=== PATIENT | female | born 2000 ===

== ENCOUNTER 2022-03-27 03:32 | Emergency (ER) | payer SELFPAY ==
[2022-03-27] MEDS ORDERED: Famotidine 20 MG/2 ML SDV IVPUSH ONE (04:10)
[2022-03-27] MEDS ORDERED: Metoclopramide 10 MG/2 ML SDV IVPUSH ONE (04:10)
[2022-03-27 04:34] LABS: AMPHETAMINES,URINE NEGATIVE (NEGATIVE); BARBITURATES,URINE NEGATIVE (NEGATIVE); BENZODIAZEPINE,URINE NEGATIVE (NEGATIVE); MDMA (ECSTASY), URINE NEGATIVE (NEGATIVE); METHADONE,URINE NEGATIVE (NEGATIVE); METHAMPHETAMINES,URINE NEGATIVE (NEGATIVE); OPIATES,URINE NEGATIVE (NEGATIVE); OXYCODONE,URINE NEGATIVE (NEGATIVE); PHENCYCLIDINE,URINE NEGATIVE (NEGATIVE); TCA,URINE NEGATIVE (NEGATIVE)
[2022-03-27 04:50] LABS: ANION GAP 14.4 mEq/L (7-13); CHLORIDE,CL 103 mmol/L (98-107); ESTIMATED GFR 108 mL/min (>=60); SODIUM,NA 142 mmol/L (136-145)
[2022-03-27] MEDS ORDERED: Iopamidol 612 MG/ML 100 ML Bottle IVPUSH ONE (05:12)
[2022-03-27] MEDS ORDERED: HYDROmorphone 0.5 MG/0.5 ML Syringe IVPUSH ONE (06:10)
[2022-03-27] MEDS ORDERED: Ondansetron 4 MG/2 ML SDV IVPUSH ONE (06:10)
== END 2022-03-27 06:51 | disposition home or self-care (01) ==
LOC: DL.ED 03:32
DX: K21.9 Gastro-esophageal reflux disease without esophagitis (principal); F10.920 Alcohol use, unspecified with intoxication, uncomplicated; Y90.6 Blood alcohol level of 120-199 mg/100 ml; Z91.030 Bee allergy status; Z72.0 Tobacco use
CPT/HCPCS: 36415; 74177; 80053; 80305; 80307; 81001; 82150; 83605; 83690; 83735; 84703; 85025; 86140; 96374; 96375; 99284; J1170; J2405; J2765; J3490; Q9967